=== PATIENT | female | born 1970 | race American Indian/Alaskan Native ===

== ENCOUNTER 2017-05-04 02:10 | Emergency (ER) | payer OTHER ==
[2017-05-04 02:52] LABS: Urine Drugs of Abuse Note Disclamer
[2017-05-04 03:06] LABS: Bacteria,Urine 1+ /HPF (Negative); Bilirubin,Urine NEG (Negative); Blood,Urine NEG (Negative); Ketones,Urine NEG (Negative); Leukocyte Esterase,Urine TR (Negative); Mucus,Urine 1+ /HPF; Nitrite,Urine NEG (Negative); Protein,Urine <15 mg/dL mg/dL (Negative); Urobilinogen,Urine < 2.0 mg/dL (<2.0)
[2017-05-04 03:09] LABS: Basophils % (Auto) 0.3 % (0.0-1.8); Hematocrit 31.8 % (30.3-42.9); Hemoglobin 10.6 gm/dl (10.1-14.3); Mean Corpuscular HGB Conc 33 % (30-34); Mean Corpuscular Hemoglobin 30 pg (28-32); Mean Corpuscular Volume 89 fl (79-97); Platelet Count 398 K/mm3 (140-440); Red Blood Count 3.59 M/mm3 (3.65-5.03); Red Cell Distribution Width 15.3 % (13.2-15.2); White Blood Count 9.5 K/mm3 (4.5-11.0)
[2017-05-04 03:21] LABS: Blood Urea Nitrogen 6 mg/dL (7-17); Calcium 9.1 mg/dL (8.4-10.2); Carbon Dioxide 23 mmol/L (22-30); Glucose 101 mg/dL (65-100)
[2017-05-04 03:22] LABS: Anion Gap 18 mmol/L; Chloride 100.5 mmol/L (98-107); Potassium 3.5 mmol/L (3.6-5.0); Sodium 138 mmol/L (137-145)
--- NOTE | 2017-05-04 07:12 | Emergency Department Report ---
ED Psych HPI - General Chief Complaint: Psych Stated Complaint: EDUARDO FREITAS Time Seen by Provider: 05/04/17 07:10 Source: patient Mode of arrival: Ambulatory - History of Present Illness Initial Comments: Patient states that she is chronically homeless. She states that she would like to get some "counseling". She tells me that she just arrived here from [facility] yesterday. She has not committed any violent behavior nor is she taking about self-harm. She denies any hallucinosis. She appears to be fully capable of activities of daily living. Thereby raising, she meets no criteria for involuntary confinement. -: year(s) Associated Psychiatric Symptoms: none History of same: Yes Quality: intermittent Improves With: none Worsens With: none Associated Symptoms: denies other symptoms Treatments Prior to Arrival: none - Related Data Allergies Allergy/AdvReac Type Severity Reaction Status Date / Time No Known Allergies Allergy Verified 05/04/17 02:17 ED Review of Systems ROS: Stated complaint: EDUARDO FREITAS Other details as noted in HPI Constitutional: denies: chills, fever Eyes: denies: eye pain, eye discharge, vision change ENT: denies: ear pain, throat pain Respiratory: denies: cough, shortness of breath, wheezing Cardiovascular: denies: chest pain, palpitations Endocrine: no symptoms reported Gastrointestinal: denies: abdominal pain, nausea, diarrhea Genitourinary: denies: urgency, dysuria, discharge Musculoskeletal: denies: back pain, joint swelling, arthralgia Skin: denies: rash, lesions Neurological: denies: headache, weakness, paresthesias Psychiatric: denies: anxiety, depression Hematological/Lymphatic: denies: easy bleeding, easy bruising ED Past Medical Hx - Past Medical History Previous Medical History?: No Additional medical history: Pt Denies. Obesity - Surgical History Additional Surgical History: Pt Denies - Social History Smoking Status: Never Smoker Substance Use Type: None ED Physical Exam - General Limitations: No Limitations General appearance: alert, in no apparent distress - Head Head exam: Present: atraumatic, normocephalic - Eye Eye exam: Present: normal appearance - ENT ENT exam: Present: mucous membranes moist - Neck Neck exam: Present: normal inspection - Respiratory Respiratory exam: Present: normal lung sounds bilaterally. Absent: respiratory distress - Cardiovascular Cardiovascular Exam: Present: regular rate, normal rhythm. Absent: systolic murmur, diastolic murmur, rubs, gallop - GI/Abdominal GI/Abdominal exam: Present: soft, normal bowel sounds. Absent: distended, tenderness, guarding, rebound - Extremities Exam Extremities exam: Present: normal inspection - Back Exam Back exam: Present: normal inspection - Neurological Exam Neurological exam: Present: alert, oriented X3, CN II-XII intact. Absent: motor sensory deficit - Psychiatric Psychiatric exam: Present: normal affect, normal mood - Skin Skin exam: Present: warm, dry, intact, normal color. Absent: rash ED Course Vital Signs 05/04/17 05/04/17 05/04/17 02:10 09:03 09:10 Temperature 98.5 F 98.7 F Pulse Rate 83 87 Respiratory 20 18 18 Rate Blood Pressure 152/90 134/64 [Right] O2 Sat by Pulse 100 96 Oximetry ED Medical Decision Making - Lab Data Result diagrams: 05/04/17 02:32 05/04/17 02:32 Laboratory Results - last 24 hr 05/04/17 05/04/17 05/04/17 02:10 02:10 02:32 WBC RBC Hgb Hct MCV MCH MCHC RDW Plt Count Lymph % (Auto) [place] % (Auto) Eos % (Auto) Baso % (Auto) Lymph # [place] # Eos # Baso # Seg Neutrophils % Seg Neutrophils # Sodium 138 Potassium 3.5 L Chloride 100.5 Carbon Dioxide 23 Anion Gap 18 BUN 6 L Creatinine 0.5 L Estimated GFR > 60 BUN/Creatinine Ratio 12.00 Glucose 101 H Calcium 9.1 HCG, Qual Urine Color Yellow Urine Turbidity Slightly-cloudy Urine pH 5.0 Ur Specific [place] 1.020 Urine Protein <15 mg/dl Urine Glucose (UA) Neg Urine Ketones Neg Urine Blood Neg Urine Nitrite Neg Urine Bilirubin Neg Urine Urobilinogen < 2.0 Ur Leukocyte Esterase Tr Urine WBC (Auto) 5.0 Urine RBC (Auto) 5.0 U Epithel Cells (Auto) 13.0 Urine Bacteria (Auto) 1+ Urine Mucus 1+ Urine Opiates Screen Presumptive negative Urine Methadone Screen Presumptive negative Ur Barbiturates Screen Presumptive negative Ur Phencyclidine Scrn Presumptive negative Ur Amphetamines Screen Presumptive negative U Benzodiazepines Scrn Presumptive negative Urine Cocaine Screen Presumptive negative U Marijuana (THC) Screen Presumptive negative Drugs of Abuse Note Disclamer Plasma/Serum Alcohol 05/04/17 05/04/1717 02:32 02:32 02:32 WBC 9.5 RBC 3.59 L Hgb 10.6 Hct 31.8 MCV 89 MCH 30 MCHC 33 RDW 15.3 H Plt Count 398 Lymph % (Auto) 21.9 [place] % (Auto) 5.7 Eos % (Auto) 1.0 Baso % (Auto) 0.3 Lymph # 2.1 [place] # 0.5 Eos # 0.1 Baso # 0.0 Seg Neutrophils % 71.1 H Seg Neutrophils # 6.7 Sodium Potassium Chloride Carbon Dioxide Anion Gap BUN Creatinine Estimated GFR BUN/Creatinine Ratio Glucose Calcium HCG, Qual Negative Urine Color Urine Turbidity Urine pH Ur Specific [place] Urine Protein Urine Glucose (UA) Urine Ketones Urine Blood Urine Nitrite Urine Bilirubin Urine Urobilinogen Ur Leukocyte Esterase Urine WBC (Auto) Urine RBC (Auto) U Epithel Cells (Auto) Urine Bacteria (Auto) Urine Mucus Urine Opiates Screen Urine Methadone Screen Ur Barbiturates Screen Ur Phencyclidine Scrn Ur Amphetamines Screen U Benzodiazepines Scrn Urine Cocaine Screen U Marijuana (THC) Screen Drugs of Abuse Note Plasma/Serum Alcohol < 0.01 - Medical Decision Making Case management will assist this patient with mental health social worker. She will be referred for outpatient counseling. She does not meet 1013 criteria. Critical care attestation.: If time is entered above; I have spent that time in minutes in the direct care of this critically ill patient, excluding procedure time. ED Disposition Clinical Impression: Homelessness, Psychiatric disorder Disposition: DC-01 TO HOME OR SELFCARE Is pt being admited?: No Does the pt Need Aspirin: No Condition: Stable Instructions: Medical Clearance for Psychiatric Care (ED) Additional Instructions: farrowing worker will assist you with a fpc. Outpatient counseling may be secured at [facility]. Return any acute change or problem. Referrals: PRIMARY CARE, [Primary Care Provider] - 3-5 Days [facility] [Outside] - 3-5 Days Time of Disposition: 09:29
[2017-05-04 09:12] VITALS: BP 134/64
== END 2017-05-04 11:24 | disposition home or self-care (01) ==
LOC: EEVIPCON 02:10 → ED 02:10
DX: F29 Unspecified psychosis not due to a substance or known physiological condition (principal); Z59.0 Homelessness
CPT/HCPCS: 36415; 80048; 80307; 81001; 84703; 85025; 99283; G0480; 80320